=== PATIENT | female | born 1995 | race Caucasian/White ===

== ENCOUNTER 2016-11-24 13:05 | Emergency (ER) | payer MEDICAID ==
[2016-11-24 13:15] VITALS: TEMP 97.7
[2016-11-24 13:17] LABS: % IMMATURE GRANULYOCYTES 0.4 % (0.0-1.1); ABSOLUTE IMMATURE GRANULOCYTES 0.04 10^3/uL (0.00-0.10); ADD DIFF? NO; ADD MORPH? NO; ADD SCAN? NO; ATYPICAL LYMPHOCYTE FLAG 10 (0-99); FRAGMENT RBC FLAG 0 (0-99); HEMATOCRIT 42.2 % (38.0-47.0); HEMOGLOBIN 14.4 g/dL (12.6-16.3); LEFT SHIFT FLG 0 (0-99); LIPEMIA HEMOLYSIS FLAG 90 (0-99); MEAN CELL HEMOGLOBIN 30.4 pg (27.9-34.1); MEAN CELL HEMOGLOBIN CONCENTR. 34.1 g/dL (32.4-36.7); MEAN CELL VOLUME 89.2 fL (81.5-99.8); MEAN PLATELET VOLUME 9.3 fL (8.7-11.7); PLATELET CLUMPS FLAG 10 (0-99); PLATELET COUNT 348 10^3/uL (150-400); RED BLOOD CELL COUNT 4.73 10^6/uL (4.18-5.33); RED CELL DISTRIBUTION WIDTH 12.7 % (11.5-15.2)
[2016-11-24] MEDS ORDERED: ONDANSETRON 4 MG/2 ML VIAL IVP ONE (13:40)
[2016-11-24] MEDS ORDERED: NS 1,000 ML IV ONE (13:40)
--- NOTE | 2016-11-24 13:43 | EDPHY ---
H & P Stated Complaint: ABDOMINAL PAIN HPI/ROS: CHIEF COMPLAINT: Abdominal pain HISTORY OF PRESENT ILLNESS: Patient complains of 1 day history of left-sided lower abdominal pain. This started about this morning. It is in the lower abdomen upper side of the left pelvis. Severe, cramping pain that radiates around her body. This lasted for 1 hour and then improved. She attempted to go to work in the pain returned. She felt nauseated and warm. No vomiting. No trauma or injury. No vaginal bleeding or discharge. She does report a recent urinary tract infection that she completed 1 week antibiotics for that seem to have resolved. Today's 1st ever menstrual cycle. She feels that this is a severe cramp. No other associated complaints or modifying factors. REVIEW OF SYSTEMS: Ten systems reviewed and are negative unless otherwise noted in the HPI PAST MEDICAL HISTORY: Denies any medical history SOCIAL HISTORY: Nonsmoker. Works as a [employer] FAMILY HISTORY: Noncontributory EXAMINATION General Appearance: Alert, no distress Head: normocephalic, atraumatic Eyes: Pupils equal and round, no conjunctival pallor or injection ENT, Mouth: Mucous membranes moist Neck: Normal inspection, supple, non-tender Respiratory: Lungs are clear to auscultation. No wheezing, rhonchi or crackles Cardiovascular: Regular rate and rhythm. No murmur Gastrointestinal: Bowel sounds symmetric in all 4 quadrants. Abdomen is soft and nondistended. No tympany. No rigidity. She is tender on the left side. No tenderness on the right lower quadrant or right upper quadrant. lower quadrant and into the upper pelvis. No guarding. No rebound. Nonacute abdomen Back: non-tender, no bony abnormalities Neurological: GCS 15. A&O, nonfocal, normal gait. Strength symmetric in all 4 limbs. No pronator drift. No dysmetria. Skin: Warm and dry, no rash Extremities: Nontender, no pedal edema Psychiatric: Mood and affect normal DIFFERENTIAL DIAGNOSES: Including but not limited to ovarian torsion, ovarian cyst, menorrhagia, tubo- ovarian abscess, colitis, diverticulitis, UTI, ureteral stone, nephrolithiasis, pyelonephritis MDM: 1:40 a.m. Left-sided abdominal and pelvic pain. This was sudden onset this morning. Still present more of a cramping pain throughout the lower abdomen. I have ordered a pelvic ultrasound to rule out torsion. Laboratory studies are pending. Vital signs are within normal limits. She is in no acute distress. 2:20 p.m. I have re-evaluated the patient. She is resting comfortably and feeling better. She mention to me that she also had a recent head injury. She had a piece of metal fall for shelf and struck on the back of the head last week. She did not lose consciousness but had a brief. Of nearly losing consciousness. She has had occasional symptoms since then. No vomiting. No bruising around the eyes. No severe headache. No hematoma. No neck pain. Examination reveals fully normal neuro examination with no signs of basilar skull fracture. 2:55 p.m. Notified by radiologist Dr. Mitchell. Ultrasound of the pelvis unremarkable. I have re-evaluated the patient. Her abdominal exam remains benign. Vital signs are within normal limits. She is feeling better with the pain medication IV fluid. Do not feel she warrants a CT scan of the abdomen pelvis or CT scan of the head at this time. I informed her that we still needed a urine sample before discharge home. 3:30 p.m. Urinalysis returns with possible early urinary tract infection. When I discussed this with the patient, she informed me that she actually feels that she never fully recovered from her recent UTI. She does have a concerned that this may be a lingering infection. I will treat her presumptively with Keflex and await urine culture. I will discharge her home stable condition. She is referred to Urology for further care. Symptomatic medications and Keflex. Instructions to follow up with primary care physician or here in 48 hours for recheck or sooner should her symptoms worsen. She is comfortable this plan and discharged home stable condition. SUPERVISION: Patient was evaluated in conjunction with the supervising physician. Please see their note for details. Source: Patient, Family Exam Limitations: No limitations - Personal History LMP (Females 10-55): Now Current Tetanus/Diphtheria Vaccine: Yes - Medical/Surgical History Hx Asthma: No Hx Chronic Respiratory Disease: No Hx Diabetes: No Hx Cardiac Disease: No Hx Renal Disease: No Hx Cirrhosis: No Hx Alcoholism: No Hx HIV/AIDS: No Hx Splenectomy or Spleen Trauma: No - Social History Smoking Status: Never smoked Constitutional: Initial Vital Signs Temperature (C) 97.7 F 11/24/16 13:13 Heart Rate 74 11/24/16 13:13 Respiratory Rate 22 H 11/24/16 13:13 Blood Pressure 91/73 L 11/24/16 13:13 O2 Sat (%) 100 11/24/16 13:13 O2 Delivery Mode Room Air Allergies/Adverse Reactions: No Known Allergies Allergy (Unverified 11/24/16 13:15) Home Medications: Medication Instructions Recorded Cephalexin [Keflex (*)] 500 mg PO TID #30 cap 11/24/16 Ondansetron Odt [Zofran Odt 4 mg 4 mg PO Q6 PRN #12 tab 11/24/16 (*)] oxyCODONE HCL/ACETAMINOPHEN 1 each PO Q4-6PRN PRN #11 tablet 11/24/16 [Percocet 5-325 mg Tablet] Medical Decision Making - Diagnostics Imaging Results: Imaging Impressions Pelvic/Renal Ultrasound 11/24/16 13:39 Impression: Normal pelvic ultrasound. Findings discussed with Zachary Pozo PAC at 14:41 hour, 11/24/2016. - Data Points Laboratory Results: Laboratory Results 11/24/16 13:05 11/24/16 13:05 11/24/16 11/24/16 11/24/16 15:10 13:05 13:05 WBC RBC Hgb Hct MCV MCH MCHC RDW Plt Count MPV Neut % (Auto) Lymph % (Auto) [place] % (Auto) Eos % (Auto) Baso % (Auto) Nucleat RBC Rel Count Absolute Neuts (auto) Absolute Lymphs (auto) Absolute Monos (auto) Absolute Eos (auto) Absolute Basos (auto) Absolute Nucleated RBC Immature Gran % Immature Gran # Sodium 137 mEq/L mEq/L (134-144) Potassium 4.0 mEq/L mEq/L (3.5-5.2) Chloride 103 mEq/L mEq/L (97-110) Carbon Dioxide 19 mEq/l L mEq/l (22-31) Anion Gap 15 mEq/L mEq/L (8-16) BUN 7 mg/dL mg/dL (7-23) Creatinine 0.8 mg/dL mg/dL (0.6-1.0) Estimated GFR > 60 Glucose 108 mg/dL H mg/dL (70-100) Calcium 10.5 mg/dL H mg/dL (8.5-10.4) Total Bilirubin 0.6 mg/dL mg/dL (0.1-1.4) Conjugated Bilirubin 0.1 mg/dL mg/dL (0.0-0.5) Unconjugated Bilirubin 0.5 mg/dL mg/dL (0.0-1.1) AST 31 IU/L IU/L (14-46) ALT 48 IU/L IU/L (9-52) Alkaline Phosphatase 51 IU/L IU/L (38-126) Total Protein 8.2 g/dL g/dL (6.3-8.2) Albumin 4.9 g/dL g/dL (3.5-5.0) Lipase 127 IU/L IU/L (23-300) Beta HCG, Qual NEGATIVE Urine Color RED Urine Appearance HAZY Urine pH 7.0 (5.0-7.5) Ur Specific [place] < 1.001 L (1.002-1.030) Urine Protein 1+ H (NEGATIVE) Urine Ketones NEGATIVE (NEGATIVE) Urine Blood 3+ H (NEGATIVE) Urine Nitrate NEGATIVE (NEGATIVE) Urine Bilirubin NEGATIVE (NEGATIVE) Urine Urobilinogen NEGATIVE EU EU (0.2-1.0) Ur Leukocyte Esterase TRACE H (NEGATIVE) Urine RBC 1-3 /hpf /hpf (0-3) Urine WBC 5-10 /hpf H /hpf (0-3) Ur Epithelial Cells TRACE /lpf /lpf (NONE-1+) Urine Glucose NEGATIVE (NEGATIVE) 11/24/16 13:05 WBC 9.82 10^3/uL H 10^3/uL (3.80-9.50) RBC 4.73 10^6/uL 10^6/uL (4.18-5.33) Hgb 14.4 g/dL g/dL (12.6-16.3) Hct 42.2 % % (38.0-47.0) MCV 89.2 fL fL (81.5-99.8) MCH 30.4 pg pg (27.9-34.1) MCHC 34.1 g/dL g/dL (32.4-36.7) RDW 12.7 % % (11.5-15.2) Plt Count 348 10^3/uL 10^3/uL (150-400) MPV 9.3 fL fL (8.7-11.7) Neut % (Auto) 61.0 % % (39.3-74.2) Lymph % (Auto) 29.4 % % (15.0-45.0) [place] % (Auto) 7.0 % % (4.5-13.0) Eos % (Auto) 1.1 % % (0.6-7.6) Baso % (Auto) 1.1 % % (0.3-1.7) Nucleat RBC Rel Count 0.0 % % (0.0-0.2) Absolute Neuts (auto) 5.98 10^3/uL 10^3/uL (1.70-6.50) Absolute Lymphs (auto) 2.89 10^3/uL 10^3/uL (1.00-3.00) Absolute Monos (auto) 0.69 10^3/uL 10^3/uL (0.30-0.80) Absolute Eos (auto) 0.11 10^3/uL 10^3/uL (0.03-0.40) Absolute Basos (auto) 0.11 10^3/uL H 10^3/uL (0.02-0.10) Absolute Nucleated RBC 0.00 10^3/uL 10^3/uL (0-0.01) Immature Gran % 0.4 % % (0.0-1.1) Immature Gran # 0.04 10^3/uL 10^3/uL (0.00-0.10) Sodium Potassium Chloride Carbon Dioxide Anion Gap BUN Creatinine Estimated GFR Glucose Calcium Total Bilirubin Conjugated Bilirubin Unconjugated Bilirubin AST ALT Alkaline Phosphatase Total Protein Albumin Lipase Beta HCG, Qual Urine Color Urine Appearance Urine pH Ur Specific [place] Urine Protein Urine Ketones Urine Blood Urine Nitrate Urine Bilirubin Urine Urobilinogen Ur Leukocyte Esterase Urine RBC Urine WBC Ur Epithelial Cells Urine Glucose Medications Given: Discontinued Medications Sodium Chloride (Ns) 1,000 mls @ 0 mls/hr IV EDNOW ONE; Wide Open PRN Reason: Protocol Stop: 11/24/16 13:41 Last Admin: 11/24/16 13:48 Dose: 1,000 mls Morphine Sulfate (Morphine) 4 mg IVP EDNOW ONE Stop: 11/24/16 13:41 Last Admin: 11/24/16 13:49 Dose: 4 mg Ondansetron HCl (Zofran) 4 mg IVP EDNOW ONE Stop: 11/24/16 13:41 Last Admin: 11/24/16 13:49 Dose: 4 mg Departure - Departure Disposition: Home, Routine, Self-Care Clinical Impression: Left lateral abdominal pain Menorrhagia Qualifiers: Menorrahagia type: with regular cycle Qualified Code(s): N92.0 - Excessive and frequent menstruation with regular cycle UTI (urinary tract infection) Qualifiers: Urinary tract infection type: acute cystitis Hematuria presence: without hematuria Qualified Code(s): N30.00 - Acute cystitis without hematuria Condition: Good Instructions: Dysmenorrhea (ED), Acute Abdominal Pain (ED) Additional Instructions: 1. Prescription medications as prescribed to completion 2. Follow up with Urology and primary care physician 3. Increase fluid intake 4. Return to ER for worsening pain, fever, nausea vomiting Referrals: Patient,NotPresent [Unknown] - As per Instructions Nicki Richards MD [Medical Doctor] - As per Instructions Jayme Aranda MD [Medical Doctor] - As per Instructions Prescriptions: Cephalexin [Keflex (*)] 500 mg PO TID #30 cap Ondansetron Odt [Zofran Odt 4 mg (*)] 4 mg PO Q6 PRN #12 tab PRN Reason: Nausea/Vomiting, Use 1st oxyCODONE HCL/ACETAMINOPHEN [Percocet 5-325 mg Tablet] 1 each PO Q4-6PRN PRN # 11 tablet PRN Reason: Pain, Breakthrough
[2016-11-24 13:47] LABS: ALANINE AMINOTRANSFERASE 48 IU/L (9-52); ALBUMIN 4.9 g/dL (3.5-5.0); ALKALINE PHOSPHATASE 51 IU/L (38-126); ANION GAP 15 mEq/L (8-16); ASPARTATE AMINOTRANSFERASE 31 IU/L (14-46); BILIRUBIN,TOTAL 0.6 mg/dL (0.1-1.4); BILIRUBIN-CONJUGATED 0.1 mg/dL (0.0-0.5); BILIRUBIN-UNCONJUGATED 0.5 mg/dL (0.0-1.1); CALCIUM 10.5 mg/dL (8.5-10.4); CARBON DIOXIDE 19 mEq/l (22-31); CHLORIDE 103 mEq/L (97-110); CREATININE 0.8 mg/dL (0.6-1.0); GLOMERULAR FILTRATION RATE > 60; GLUCOSE 108 mg/dL (70-100); SODIUM 137 mEq/L (134-144); TOTAL PROTEIN 8.2 g/dL (6.3-8.2)
[2016-11-24 15:23] LABS: COLOR RED; LEUKOCYTE ESTERASE,URINE TRACE (NEGATIVE); NITRITE,URINE NEGATIVE (NEGATIVE)
[2016-11-24 15:54] VITALS: BP 100/52; PULSE 64; RESP 18
[2016-11-24 15:55] VITALS: O2SAT 96
== END 2016-11-24 15:50 | disposition home or self-care (01) ==
DX: N92.0 Excessive and frequent menstruation with regular cycle (principal); N30.00 Acute cystitis without hematuria; B96.89 Other specified bacterial agents as the cause of diseases classified elsewhere; E86.9 Volume depletion, unspecified
CPT/HCPCS: 96374; J2405